=== PATIENT | female | born 1945 | race Caucasian/White ===

== ENCOUNTER 2017-01-23 20:17 | Emergency (ER) | payer OTHER ==
[~2017-01-23] VITALS: Ht 157.5 cm; Wt 69.9 kg
[2017-01-23 20:20] VITALS: BP_SYST 94
[2017-01-23] MEDS ORDERED: ASPIRIN 81 MG TAB.CHEW ONE (20:48)
[2017-01-23 20:52] LABS: BASOPHILS % (AUTO) 0.6 % (0.0-2.0); EOSINOPHILS # (AUTO) 0.1 K/uL (0.0-0.4); EOSINOPHILS % (AUTO) 2.1 % (0.0-4.0); HEMATOCRIT 39.8 % (36-48); HEMOGLOBIN 13.1 g/dL (12.0-16.0); LYMPHOCYTES # (AUTO) 2.5 K/uL (1.0-5.5); LYMPHOCYTES % (AUTO) 39.4 % (20.5-51.5); MEAN CORPUSCULAR HEMOGLOBIN 29 pg (27-31); MEAN CORPUSCULAR HGB CONC 33 % (32-36); MEAN CORPUSCULAR VOLUME 87 fL (79.0-98.0); MONOCYTES # (AUTO) 0.5 K/uL (0.0-1.0); MONOCYTES % (AUTO) 7.5 % (1.7-9.3); NEUTROPHILS # (AUTO) 3.2 K/uL (1.8-7.7); NEUTROPHILS % (AUTO) 50.4 % (40.0-70.0); PLATELET COUNT (AUTO) 252 K/uL (130-430); RED BLOOD CELL COUNT(AUTO) 4.56 MIL/uL (4.2-6.2); RED CELL DISTRIBUTION WIDTH 12.9 % (9.0-15.0); WHITE BLOOD COUNT (AUTO) 6.3 K/uL (4.8-10.8)
[2017-01-23 21:08] LABS: INR 0.9 (0.8-1.2); PROTHROMBIN TIME 10.3 SECS (9.5-12.5)
[2017-01-23 21:12] LABS: CALCIUM 9.2 mg/dL (8.4-11.0); CREATININE 1.06 mg/dL (0.55-1.30); POTASSIUM 3.7 mmol/L (3.5-5.1)
[2017-01-23 21:17] LABS: ALBUMIN 3.9 g/dL (3.4-4.8); TOTAL PROTEIN, SERUM 7.4 g/dL (6.4-8.3)
[2017-01-23 21:25] VITALS: BP_SYST 98
[2017-01-23] MEDS ORDERED: NITROGLYCERIN 0.4 MG TAB.SUBL SL ONE (21:30)
[2017-01-23] MEDS ORDERED: ASPIRIN 81 MG TAB.CHEW PO ONE (21:30)
== END 2017-01-23 21:25 | disposition short-term general hospital (02) ==
LOC: SED 20:17
DX: I24.9 Acute ischemic heart disease, unspecified (principal)
CPT/HCPCS: 36415; 71010; 80053; 84484; 85025; 85610-TC; 85730-TC; 93005; 99285

== ENCOUNTER 2021-07-24 10:09 | Day surgery (SDC) | payer OTHER, MEDICARE, SELFPAY ==
[~2021-07-24] VITALS: Ht 162.6 cm; Wt 83.9 kg
[~2021-07-24 10:09] MED LIST: CEFAZOLIN SOD 2 GM in D5W 50 ML IV ONE
[2021-07-24] MEDS ORDERED: BUPIVACAINE LIPOSOME/PF 266 MG/20 ML VIAL INFIL ONE (12:09)
[2021-07-24] MEDS ORDERED: hydrALAZINE HCL 20 MG/ML VIAL IVP PRN (12:30)
[2021-07-24] MEDS ORDERED: MIDAZOLAM HCL 2 MG/2 ML VIAL (VERSED) IVP PRN (12:30)
[2021-07-24] MEDS ORDERED: LABETALOL 100 MG/ 20ML VIAL IVP PRN (12:30)
[2021-07-24] MEDS ORDERED: ONDANSETRON HCL 4 MG/2 ML VIAL IVP PRN ×2 (12:30→14:15)
[2021-07-24] MEDS ORDERED: HYDROmorphone 1 MG/ML INJ. CARTRIDGE IVP PRN ×2 (12:30)
[2021-07-24] MEDS ORDERED: MEPERIDINE HCL/PF 25 MG/ML DISP.SYRIN IVP PRN (12:30)
[2021-07-24] MEDS ORDERED: LR 1,000 ML IV SCH (12:30)
[2021-07-24] MEDS ORDERED: LATA5DRO EACH EYE (12:52)
[2021-07-24] MEDS ORDERED: TIMO5DRO15 EACH EYE (12:52)
[2021-07-24] MEDS ORDERED: SER100 PO (12:52)
[2021-07-24] MEDS ORDERED: CARB1TAB21 PO (12:52)
[2021-07-24] MEDS ORDERED: PRAM0.5T3 PO (12:52)
[2021-07-24] MEDS ORDERED: ALPHAGAN1 OP (12:52)
[2021-07-24] MEDS ORDERED: NAPR-690 PO (12:52)
[2021-07-24] MEDS ORDERED: RIVA1PAT3 TP (12:52)
[2021-07-24] MEDS ORDERED: fentaNYL CITRATE 250 MCG/5 ML AMP ONE (14:02)
[2021-07-24] MEDS ORDERED: BUPIVACAINE /EPINEPHRINE/PF 0.25% 30 ML VIAL INJ ONE (14:02)
[2021-07-24] MEDS ORDERED: ROCURONIUM BROMIDE 10 MG/ML (ZEMURON) ONE (14:02)
[2021-07-24] MEDS ORDERED: SUGAMMADEX SODIUM 200 MG/2 ML VIAL IV ONE (14:02)
[2021-07-24] MEDS ORDERED: NS 1000 ML IV.SOLN IV ONE (14:02)
[2021-07-24] MEDS ORDERED: LIDOCAINE 2%, 20 ML MDV ONE (14:02)
[2021-07-24] MEDS ORDERED: DEXAMETHASONE SOD PHOSPHATE 4 MG/ML VIAL ONE (14:02)
[2021-07-24] MEDS ORDERED: ONDANSETRON HCL 4 MG/2 ML VIAL ONE (14:02)
[2021-07-24] MEDS ORDERED: DESFLURANE 15 MIN GAS INH ONE (14:02)
[2021-07-24] MEDS ORDERED: MIDAZOLAM HCL 5 MG/ML VIAL (VERSED) IV ONE (14:02)
[2021-07-24] MEDS ORDERED: LR 1,000 ML IV.SOLN IV ONE (14:02)
[2021-07-24] MEDS ORDERED: PROPOFOL 200MG/ 20ML VIAL (DIPRIVAN) IV ONE (14:02)
[2021-07-24] MEDS ORDERED: MORPHINE 2 MG/ML INJ. SYRINGE IVP PRN (14:15)
[2021-07-24] MEDS ORDERED: HYDROcodone/ACETAMIN 5-325 MG TAB (NORCO/ VICODIN) PO PRN (14:15)
--- NOTE | 2021-07-24 15:00 | NUR ---
RECEIVED PT FROM [facility], S/P VENTRAL HERNIA PARTIAL OMENTECTOMY WITH MESH. DRESSING DRY AND INTACT, WITH ABDOMINAL BINDER, HAS SCD, IVF INFUSING WELL. PAIN IS CONTROL AT THIS TIME. FAMILY AT BEDSIDE. ORIENTED TO CALL LIGHT USE. SAFETY PRECAUTION, CALL LIGHT WITHIN REACH.
[2021-07-24 15:30] VITALS: BP_SYST 141
--- NOTE | 2021-07-24 17:00 | NUR ---
NOTES ASSISTED TO THE BATHROOM AND VOIDED, PT TOLERATED WELL, PAIN IS CONTROL.
[2021-07-24 17:15] VITALS: BP_SYST 141
--- NOTE | 2021-07-24 18:49 | NUR ---
closing notes Eating dinner, at bedside. pain is controlled. No distress. will endorse.
[2021-07-24 20:00] VITALS: BP_SYST 119
[2021-07-24] MEDS: ceFAZolin SODIUM 1 GM in D5W 50 ML IV SCH (20:53)
[2021-07-24] MEDS: BRIMONIDINE TARTRATE 0.2% 5 mL EYE DROPS OP SCH (20:54)
[2021-07-24] MEDS: TIMOLOL MALEATE 0.5% OPHTHALMIC DROPS 5 ML EACH EYE SCH (20:54)
[2021-07-24] MEDS: NORMAL SALINE 5 ML DISP.SYRIN IVF SCH (20:54)
--- NOTE | 2021-07-24 20:54 | NUR ---
THIS RN TO ENTER PATIENT'S ROOM TO BEGIN HS MEDICATION ROUNDS, NOTED AT BEDSIDE AND ASKED WHAT I WAS GIVING HER AND I SHOWED HIM THE PILL PACKAGES AND TOLD HIM THE NAMES FOLLOW:TIMOPTIC AND ALPHAGAN EYE DROPS, MIRAPEX, SEROQUEL,SINEMET, ANCEF AND SALINE FLUSH IV. THIS RN TO REPORT TO THE FACILITY DIDN'T CARRY HER HOME MEDICATION [id number], HE REPORTED HE DIDN'T HAVE THAT ONE BUT HAD WENT TO THE CAR TO GET HER BEDTIME MEDICATIONS BECAUSE SHE IS SUPPOSED TO TAKE THEM AT 20:00- PATIENT'S PULLED OUT THE LIST OF MEDICATIONS HE HAD GIVEN HER WHICH INCLUDED TIMOPTIC AND ALPHAGAN EYE DROPS, SEROQUEL, MIRAPEX AND SINEMET HE VOICED HE THOUGHT IT WAS BEST SHE TAKE HER OWN MEDICATIONS FROM HOME SO SHE DOESN'T HAVE ANY SIDE EFFECTS IN CASE IT WAS A DIFFERENT BRAND THAN SHE ALREADY TAKES. THIS RN DID NOT SEE PATIENT TAKE ANY MEDICATIONS HE ONLY SHOWED ME THE LIST AND TWO EYE DROP BOTTLES. THIS RN TO EDUCATE PATIENT ON NOT GIVING HER MEDICATIONS TO PREVENT OVERDOSING, ANCEF AND SALINE FLUSH IV ADMINISTERED MD ORDERED. THIS RN TO RETURN MEDICATIONS PULLED FOR PIXIES TO ADMINISTER. WILL REPORT TO CHARGE NURSE AND ONCOMING NURSE.
[2021-07-24] MEDS: CARBIDOPA/LEVODOPA 25/100 MG TABLET PO SCH (20:55)
[2021-07-24] MEDS ORDERED: QUEtiapine FUMARATE 100 MG TABLET PO SCH (21:00)
[2021-07-24] MEDS ORDERED: BRIMONIDINE TARTRATE 0.1% 5 mL EYE DROPS OP SCH (21:00)
[2021-07-24] MEDS ORDERED: PRAMIPEXOLE DI-HCL 1 MG TABLET PO SCH (21:00)
[2021-07-24] MEDS ORDERED: LATANOPROSTENE BUNOD EACH EYE SCH (21:00)
[2021-07-24] MEDS ORDERED: LATANOPROSTENE BUNOD OP SCH (21:00)
[2021-07-25 01:14] VITALS: BP_SYST 113; BP_SYST 126
[2021-07-25 04:00] VITALS: BP_SYST 150
--- NOTE | 2021-07-25 05:12 | NUR ---
Nutrition Update Harpreet Scale 18 noted. Pt admitted for Umbilical Hernia w/o Obstruction or gangrene Diet: regular BMI: 31.8 kg/m2 RD to follow per nutrition care standards.
[2021-07-25 06:20] LABS: BASOPHILS % (AUTO) 0.1 % (0.0-2.0); EOSINOPHILS % (AUTO) 0.1 % (0.0-4.0); HEMATOCRIT 36.2 % (36-48); HEMOGLOBIN 12.3 g/dL (12.0-16.0); LYMPHOCYTES # (AUTO) 1.5 K/uL (1.0-5.5); LYMPHOCYTES % (AUTO) 16.1 % (20.5-51.5); MEAN CORPUSCULAR HEMOGLOBIN 30 pg (27-31); MEAN CORPUSCULAR HGB CONC 34 % (32-36); MEAN CORPUSCULAR VOLUME 88 fL (79.0-98.0); MONOCYTES # (AUTO) 0.7 K/uL (0.0-1.0); MONOCYTES % (AUTO) 7.6 % (1.7-9.3); NEUTROPHILS # (AUTO) 7.2 K/uL (1.8-7.7); NEUTROPHILS % (AUTO) 76.1 % (40.0-70.0); PLATELET COUNT (AUTO) 259 K/uL (130-430); RED BLOOD CELL COUNT(AUTO) 4.11 MIL/uL (4.2-6.2); RED CELL DISTRIBUTION WIDTH 13.7 % (9.0-15.0); WHITE BLOOD COUNT (AUTO) 9.4 K/uL (4.8-10.8)
[2021-07-25] MEDS: NORMAL SALINE 5 ML DISP.SYRIN IVF SCH ×2 (06:26→14:44)
[2021-07-25 06:30] LABS: ANION GAP 6 (5-15); CALCIUM 8.8 mg/dL (8.4-11.0); CHLORIDE 107 mmol/L (98-107); CREATININE 0.98 mg/dL (0.55-1.30); GLUCOSE 115 mg/dL (70-99); POTASSIUM 3.9 mmol/L (3.5-5.1); SODIUM SERUM 141 mmol/L (136-145); UREA NITROGEN, BLOOD 20 mg/dL (8-21)
[2021-07-25] MEDS: ceFAZolin SODIUM 1 GM in D5W 50 ML IV SCH ×2 (06:33→13:13)
--- NOTE | 2021-07-25 07:30 | NUR ---
RECEIVED REPORT FROM PM NURSE, PT RESTING IN BED, AAO x4, DENIES PAIN/DISCOMFORT. RESPIRATIONS EVEN AND UL ON RA. NO SOB/DISTRESS. INCISIONS TO ABD x4, COVERED WITH DRESSING, CDI. BS ACTIVE x4, ABD SOFT AND ROUND, DENIES N/V/D/. PATIENT PASSING GAS. PULSES PALP, NO EDEMA NOTED, DENIES CP/CARDIAC DISCOMFORT. SL TO RH, IV SITE WNL. ALL NEEDS MET. BED IN LOW, SIDE RAILS x2, CALL LIGHT IN REACH. AT BEDSIDE. WILL CONT TO MONITOR.
[2021-07-25 08:00] VITALS: BP_SYST 123
[2021-07-25] MEDS: CARBIDOPA/LEVODOPA 25/100 MG TABLET PO SCH ×2 (08:40→13:12)
[2021-07-25] MEDS: TIMOLOL MALEATE 0.5% OPHTHALMIC DROPS 5 ML EACH EYE SCH (08:40)
[2021-07-25] MEDS: BRIMONIDINE TARTRATE 0.2% 5 mL EYE DROPS OP SCH (08:40)
[2021-07-25] MEDS ORDERED: RIVASTIGMINE 9.5 MG/24 HR PATCH.TD24 TP SCH (09:00)
[2021-07-25 12:00] VITALS: BP_SYST 120
[2021-07-25 14:58] VITALS: BP_SYST 99
--- NOTE | 2021-07-25 15:15 | NUR ---
RECEIVED DISCHARGE ORDERS, PRINTED DISCHARGE INSTRUCTIONS/PACKET GIVEN AND EXPLAINED TO PT//DAUGHTER AT BEDSIDE. PT/FAMILY VERBALIZED UNDERSTANDING OF ALL DISCHARGE INSTRUCTIONS/FOLLOW UP APPT/MEDICATIONS/EDUCATION MATERIALS. ALL QUESTIONS ANSWERED. IV SITE TO RH REMOVED, CATH INTACT, NO BLEEDING NOTED. ABD INCISIONS x3 COVERED WITH DRESSING, CDI. INSTRUCTED PT TO FOLLOW UP WITH PCP IN 2-3 DAYS. ACCOMPANIED PT TO MAIN ENTRANCE VIA WHEELCHAIR, PT DISCHARGED HOME WITH . PT LEFT WITH ALL BELONGINGS INCLUDING PURSE AND CELL PHONE AND CLOTHING.
== END 2021-07-25 15:00 | disposition home or self-care (01) ==
LOC: SDS 10:09 → SMU 10:12 → SDS 07-25 15:00
PROVIDERS: ATTEND Surgery
DX: K43.9 Ventral hernia without obstruction or gangrene (principal); G20 Parkinson's disease; E78.5 Hyperlipidemia, unspecified; F32.9 Major depressive disorder, single episode, unspecified; E66.9 Obesity, unspecified; Z79.899 Other long term (current) drug therapy; Z20.822 Contact with and (suspected) exposure to COVID-19
CPT/HCPCS: 36415; 49561; 49568; 80048; 85025; 87081; 88302; 88307; 97116; 97162; C1781; C9290; J0690; J7060; U0003; 88305; J1100; J2001; J2250; J2405; J2704; J3010; J3490; J7030; J7120